=== PATIENT | male | born 1995 | race Two or more races ===

== ENCOUNTER 2024-09-12 01:52 | Emergency (ER) | payer MEDICAID, OTHER ==
[~2024-09-12] VITALS: Ht 175.3 cm; Wt 122.7 kg
[2024-09-12 02:07] VITALS: BP 144/92; PULSE 90; RESP 16; TEMP 97.9; O2SAT 99
--- NOTE | 2024-09-12 02:16 | ED.PDOC ---
History of Present Illness HPI Comments 28 y/o M presents with c/c rectal bleeding. Onset of symptoms reported to have begin today. 3x incidences of bleeding with wiping when using the toilet. He reports on last incidence having blood both when wiping and in the toiled and it being bright red in appearance. 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 Denies any abdominal pain, nausea, vomiting, or further associated symptoms. Chief Complaint: Rectal Pain Time Seen by MD: 02:00 Primary Care Provider: MARY Reviewed Notes: Nurses Notes, Medications, Allergies Allergies: Coded Allergies: NO KNOWN ALLERGIES (Unverified , 09/09/11) Information Source: Patient Mode of Arrival: Ambulatory Severity: Moderate Timing: Hours Duration: Since onset Prehospital treatment: None Past Medical History PAST MEDICAL HISTORY: Denies Surgical History: Denies all surgeries Family History Family History: Unknown Social History Smoker: Non-Smoker Alcohol: Denies ETOH Use Drugs: Denies Drug Use Lives In: Home All Other Systems: Reviewed and Negative (Comprehensive review of systems are negative unless otherwise stated in HPI ) Physical Exam General Appearance: No Apparent Distress, Obese HEENT: Normal ENT Inspection, Pharynx Normal, TMs Normal Neck: Full Range of Motion, Non-Tender, Normal, Normal Inspection Respiratory: Chest Non-Tender, Lungs Clear, No Accessory Muscle Use, No Respiratory Distress, Normal Breath Sounds Cardiovascular: No Edema, No JVD, No Murmur, No Gallop, Normal Peripheral Pu lses, Regular Rate/Rhythm Breast Exam: Deferred Gastrointestinal: No Organomegaly, Non Tender, No Pulsatile Mass, Normal Bowel Sounds, Soft Genitalia: Deferred Pelvic: Deferred Rectal: Hemorrhoids Extremities: No calf tenderness, Normal capillary refill, Normal inspection, Normal range of motion, Non-tender, No pedal edema Musculoskeletal : Apperance: Normal Neurologic: Alert, data control assistant II-XII nml as Tested, No Motor Deficits, Normal Affect, Normal Mood, No Sensory Deficits Cerebellar Function: Normal Reflexes: Normal Skin: Dry, Normal Color, Warm Lymphatic: No Adenopathy Was a procedure done? Was a procedure done?: No Differential Dx Considerations may include: hemorrhoids, upper GI bleed, anemia, among others X-Ray, Labs, Meds, VS Vital Signs Date Time Temp Pulse Resp B/P (MAP) Pulse Ox O2 Delivery O2 Flow Rate FiO2 7/21/25 02:07 97.9 90 16 144/92 (109) 99 97.9 X-Ray, Labs, Meds, VS Comment SCRIPT TRIAL OF HYDROCORTISONE SUPPOSITORY ADVISED TAKE MEDICATION PRESCRIBED SIDE EFFECTS DISCUSSED ADVISED TO FOLLOW UP CALL HIS PCP BLEEDING CONTINUES REFERRAL FOR GI FOR COLONOSCOPY. ER RETURN PRECAUTIONS GIVEN PATIENT INDICATES UNDERSTANDING AGREES WITH DISCHARGE PLAN OF CARE. Time of 1ST Reevaluation: 02:30 Reevaluation 1ST: Unchanged Time of 2ND Reevaluation: 03:31 Reevaluation 2ND: Improved Patient Education/Counseling: Diagnosis, Treatment, Prognosis, Need For Follow Up Family Education/Counseling: No Family Present SEPSIS Sepsis Screen Vital Signs Date Time Temp Pulse Resp B/P (MAP) Pulse Ox O2 Delivery O2 Flow Rate FiO2 09/12/24 02:07 97.9 90 16 144/92 (109) 99 97.9 Departure 1 Departure Time of Disposition: 03:29 Impression: Primary Impression: Internal hemorrhoid Disposition: 01 HOME / SELF CARE / HOMELESS Condition: Stable e-Prescriptions Hydrocortisone Acetate (Anusol-Hc) 25 Mg Sup 1 SUPP WI BID PRN for 7 Days, #14 SUPP ONE SUPPOSITORY TWICE DAILY NEEDED AFTER BOWEL MOVEMENT Prov: LOPEZ CRANDALL 09/12/24 Discharged With: Self Critical Care Note Critical Care Time?: No Stability Stability form required: No Heart Score Heart Score: Heart Score Response (Comments) Value History N/A 0 EKG N/A 0 Age N/A 0 Risk Factors N/A 0 Troponin N/A 0 Total 0 I personally scribed for ER ([email or web address]) on 09/12/24 at 02:16. Electronically submitted by Jayy Bergman ([email or web address]). ER Sep 12, 2024 02:16 LOPEZ CRANDALL [facility] Sep 12, 2024 02:19
[2024-09-12] MEDS ORDERED: HYDR25SU21 PR (03:31)
== END 2024-09-12 06:45 | disposition home or self-care (01) ==
LOC: ER 01:52
DX: K64.8 Other hemorrhoids (principal)